=== PATIENT | female | born 1970 | race Caucasian/White ===

== ENCOUNTER → 2016-07-05 | Outpatient (CLI) | payer MEDICARE ==
[~2016-07-05] MED LIST: AMBIEN10 MG PO; ATARAX PO; CALCIUM 600 +1 EA13 PO; CALCIUM 600 +1 EAC3 PO; CELEXA PO; CIPRO PO; CITALOPRAM HBR40 M1 PO; CITALOPRAM HBR40 MG PO; COLESTID PO; COQ-10100 MG PO; DAYPRO600 M1 PO; DEPAKOTE250 MG PO; DIAMOX SEQUELS500 MG PO; DICLOFENAC PO; FIORICET 50-321 EACH PO; FISH OIL 1,2001 EAC2 PO; FISH OIL300 MG PO; FLEXERIL10 M1 PO; FLEXERIL10 MG PO; FLONASE ALLERG9.9 ML; IBUPROFEN800 MG PO; IMITREX PO; IRON45 MG PO; K-DUR20 ME1 PO; KETOPROFEN PO; KLONOPIN PO; KLONOPIN1 M1 PO; KLONOPIN1 MG PO; LAMICTAL150 MG PO; LAMICTAL25 MG PO; LATANOPROST2.5 ML OU; LIPITOR20 MG PO; LORCET PLUS 7.1 EACH PO; MAGNESIUM250 M1 PO; MAGNESIUM500 MG PO; MULTI VITAMIN1 EACH PO; NAMENDA10 MG PO; NEURONTIN PO; NEXIUM40 M1 PO; OTC ALLERGY MED PO; PANTOPRAZOLE SO40 MG PO; PREDNISONE PO; PROPRANOLOL HCL10 MG PO; PROTONIX PO; RESTORIL15 MG PO; SIMVASTATIN20 MG; SUPER MULTIPLE1 EACH PO; TAGAMET PO; TESSALON PERLE100 M1 DOB; TOPAMAX PO; TOPAMAX25 MG PO; TRAZODONE HCL100 MG PO; TREXIMET 85-5001 TAB; VERAPAMIL ER100 MG PO; VICODIN 5/1 TAB 5/50 PO; VIMOVO 500-201 EACH PO; VITAMIN B-121000 MC1 SL; VITAMIN B-250 MG PO; VITAMIN B12-FO1 EACH PO; VITAMIN B2 PO; VITAMIN C500 M5 PO; VITAMIN D-32000 UNI2 PO; VITAMIN D2000 UNIT PO; VITAMIN D50000 UNIT PO; VOLTAREN75 MG PO; ZONEGRAN100 M1 PO
--- NOTE | ~2016-07-05 | MR113 ---
[facility] A Service of [facility] RADIOLOGY TEXT RESULTS PATIENT: ERNESTO CANAS LOCATION: [facility] : 71 UNIT #: [id number] AGE: [address]: HEAVEN LYONS MD (INT MED) SEX: F ORDER DR: [id number] [address] [address] [id number] O MR#: [id number] Acc #: [id number] NAME: ERNESTO CANAS : 1970 SEX: F STUDY DATE/TIME: 07/05/2016 17:12 UNIT: [facility] ROOM: STUDY DESCRIPTION: MR Lumbar Wo Contrast Attending Physician: Heaven Lyons M.D. Ordering Physician: Heaven Lyons M.D. Primary Care Physician: Heaven Lyons M.D. MRI CENTER REPORT This report is preliminary unless electronic signature is present. EXAM MRI of the lumbar spine without contrast dated 07/05/2016 COMPARISON MRI lumbar spine without contrast dated 08/18/2014. HISTORY Increasing neck pain and low back pain since March 2016. FINDINGS Multisequence, multiplanar imaging of the lumbar spine was obtained without contrast. Vertebral body heights and alignment are preserved. Degenerative disc disease is at L4-5. Conus terminates at L1. There is fatty filum terminale extending from the level of L2-3 to L5. Pre- and paravertebral soft tissues do not demonstrate any significant abnormality. L1-2 to L3-4: No significant abnormality. L4-5: Concentric disc bulge with superimposed qxsad-wg-pnve subarticular broad-based disc protrusion with a suspicious small extruded component in the midline measuring 1.3 cm. Mild canal stenosis. No neural foraminal narrowing. L5-S1: Unremarkable. IMPRESSION Disc disease is seen at L4-5 with gokia-bx-suwp subarticular broad-based disc protrusion with a central extruded component. Associated mild canal stenosis is seen without neural foraminal narrowing. [facility] A Service of [facility] RADIOLOGY TEXT RESULTS PATIENT: ERNESTO CANAS LOCATION: [facility] : 71 UNIT #: [id number] AGE: [address]: HEAVEN LYONS MD (INT MED) SEX: F ORDER DR: Dictated by... Rajendra Dao M.D. THIS IS AN ELECTRONICALLY VERIFIED REPORT Rajendra Dao M.D. at 07/08/2016 5:17 PM CPR/mjs TD: 07/08/2016 09:33 JOB #: [id number] MRI CENTER REPORT
--- NOTE | ~2016-07-05 | MR32 ---
[facility] A Service of [facility] RADIOLOGY TEXT RESULTS PATIENT: ERNESTO CANAS LOCATION: [facility] : 71 UNIT #: [id number] AGE: [address]: HEAVEN LYONS MD (INT MED) SEX: F ORDER DR: [id number] [address] [address] [id number] O MR#: [id number] Acc #: [id number] NAME: ERNESTO CANAS : 1970 SEX: F STUDY DATE/TIME: 07/05/2016 16:45 UNIT: [facility] ROOM: STUDY DESCRIPTION: MR Cervical Wo Contrast Attending Physician: Heaven Lyons M.D. Ordering Physician: Heaven Lyons M.D. Primary Care Physician: Heaven Lyons M.D. MRI CENTER REPORT This report is preliminary unless electronic signature is present. EXAM MRI of the cervical spine without contrast dated 07/05/2016. COMPARISON MRI of the cervical spine without contrast dated 08/18/2014. HISTORY Increasing neck pain and low back pain since March 2016. FINDINGS Multisequence multiplanar imaging of the cervical spine was obtained without contrast. Vertebral body heights and alignment are preserved. Degenerative disc disease is at multiple levels, worse at C5-6 when compared to the other levels. Cord demonstrates expected course, caliber and signal. Imaged posterior fossa and craniovertebral junction are within normal limits. There is mild left mastoid tip mucosal thickening. C2-3: Mild disc bulge without canal stenosis or neural foraminal narrowing. C3-4: Concentric disc bulge with superimposed gaydn-ff-ummf central moderate protrusion with a suspicious small extruded central component. Stable. Tiny bilateral subarticular small protrusions are probably present. Stable to minimally worse. There is borderline sized to mild canal, mild left facet hypertrophic change, mild superior left neural foraminal narrowing. Relatively stable. C4-5: Concentric disc bulge with superimposed eyejd-nd-sfoy central protrusion, most prominent in the left central region. There is mild mass effect on the adjacent thecal sac and stenosis without cord compression. Superior left neural foraminal narrowing is seen with relatively patent inferior aspect. Mild bilateral facet changes particularly on the left. Stable. [facility]. [facility] A Service of [facility] RADIOLOGY TEXT RESULTS PATIENT: ERNESTO CANAS LOCATION: [facility] : 71 UNIT #: [id number] AGE: [address]: HEAVEN LYONS MD (INT MED) SEX: F ORDER DR: C5-6: Disc-osteophyte complex concentric disc bulge with small central disc extrusion and tiny bilateral subarticular small protrusions. Probably stable given differences in slice selection. It is better seen on the axial T2-weighted (gradient) sequence. Mild canal stenosis, hati-hu-pmdgugwn bilateral neural foraminal narrowing are noted. Stable. C6-7: Concentric disc bulge with tiny central protrusion. No canal stenosis or neural foraminal narrowing. C7-T1: Mild degenerative disc signal loss but otherwise unremarkable. Stable. IMPRESSION 1. Given the differences in slice selection there is no significant interval change. 2. Also levels, findings are relatively worse at C5-6 followed by C3-4 and C4-5. 3. Cord is unremarkable. 4. No severe neural foraminal narrowing or nerve impingement. 5. Canal stenosis is seen from C3-4 to C5-6 levels. 1. 1. Dictated by... Rajendra Dao M.D. THIS IS AN ELECTRONICALLY VERIFIED REPORT Rajendra Dao M.D. at 07/08/2016 5:25 PM CPR/cmm TD: 07/08/2016 09:37 JOB #: [id number] MRI CENTER REPORT
== END | disposition home or self-care (01) ==
LOC: SMRI 16:30
DX: M54.5 Low back pain (principal); M54.2 Cervicalgia; M51.26 Other intervertebral disc displacement, lumbar region; M48.06 Spinal stenosis, lumbar region; M48.02 Spinal stenosis, cervical region
CPT/HCPCS: 72141; 72148

== ENCOUNTER → 2016-08-22 | Outpatient (CLI) | payer MEDICARE ==
--- NOTE | ~2016-08-22 | XA198 ---
[facility] A Service of [facility] RADIOLOGY TEXT RESULTS PATIENT: ERNESTO CANAS LOCATION: [facility] : 71 UNIT #: [id number] AGE: [address]: DELFINA SINCLAIR APRN SEX: F ORDER DR: [id number] [facility]. [place], [place] [address] [id number] O MR#: [id number] Acc #: [id number] NAME: ERNESTO CANAS. : 1970 SEX: F STUDY DATE/TIME: 08/22/2016 9:23 UNIT: [facility] ROOM: STUDY DESCRIPTION: XA Spinal Puncture Attending Physician: Delfina Sinclair Aprn Ordering Physician: Delfina Sinclair Aprn Primary Care Physician: Dajuan Lyons M.D. MEDICAL IMAGING REPORT This report is preliminary unless electronic signature is present EXAM Fluoroscopically-guided lumbar puncture INDICATIONS Headaches and pseudotumor cerebri. Large-volume lumbar puncture requested with closing pressure requested to be under 18. The fluoro time 0.5 minutes. Reference air kerma 75 mGy. The risks, benefits, and alternatives of the procedure were discussed with the patient and informed consent was obtained. In the procedure room, a time out was performed confirming correct patient and procedure. All elements of maximum sterile-barrier technique utilized according to guidelines appropriate for the procedure. FINDINGS Patient is placed in the prone position on the fluoroscopy table. The overlying skin was prepped and draped usual sterile fashion. 1% lidocaine utilized to anesthetize the skin and underlying subcutaneous tissues. Next under fluoroscopic guidance, a 20-gauge spinal needle was advanced into the CSF space at the L4 level and there is return of clear CSF. The opening pressure was 26 cm of water. Approximately 15 mL of clear CSF was then removed. Closing pressure was 16 cm water. The needle was removed and a sterile dressing was applied. No immediate complications. IMPRESSION Technically successful fluoroscopically-guided lumbar puncture with closing pressure of 16 cm of water. Dictated by... Adryan Pina M.D. [facility] A Service of [facility] RADIOLOGY TEXT RESULTS PATIENT: ERNESTO CANAS LOCATION: [facility] : 71 UNIT #: [id number] AGE: [address]: DELFINA SINCLAIR APRN SEX: F ORDER DR: THIS IS AN ELECTRONICALLY VERIFIED REPORT Adryan Pina M.D. at 08/23/2016 9:32 AM ROBERTO CARLOS/mar TD: 08/22/2016 17:14 JOB #: [id number] MEDICAL IMAGING REPORT Page 1 of 1 COPY
[2016-08-22 08:47] LABS: HEMATOCRIT 39.5 % (35.0-45.0); MEAN CELL VOLUME 85.4 FL (83-96); MEAN CORPUSCULAR HEMOGLOBIN 28.1 PG (28-34); MEAN CORPUSCULAR HGB CONC 32.8 g/dL (30-36); MEAN PLATELET VOLUME 6.9 FL (6.5-11.5); RED BLOOD COUNT 4.63 X10e (3.90-5.30); RED CELL DISTRIBUTION WIDTH 14.3 % (11.0-15.5)
[2016-08-22 09:02] LABS: PARTIAL THROMBOPLASTIN TIME 26.8 SECONDS (23.5-31.3); PROTHROMBIN TIME (PATIENT) 10.4 SECONDS (9.6-11.5)
== END | disposition home or self-care (01) ==
LOC: CIVR 08:21
PROVIDERS: Nurse Practitioner Family
PROC: 009U3ZZ Drainage of Spinal Canal, Percutaneous Approach (ICD-10-PCS; principal; 2016-08-22)
DX: G93.2 Benign intracranial hypertension (principal); G43.709 Chronic migraine without aura, not intractable, without status migrainosus; G44.229 Chronic tension-type headache, not intractable; E78.5 Hyperlipidemia, unspecified; M79.7 Fibromyalgia; F41.1 Generalized anxiety disorder; E55.9 Vitamin D deficiency, unspecified; D64.9 Anemia, unspecified; F17.200 Nicotine dependence, unspecified, uncomplicated; E66.9 Obesity, unspecified; Z68.36 Body mass index [BMI] 36.0-36.9, adult; H53.9 Unspecified visual disturbance; M54.81 Occipital neuralgia; M62.838 Other muscle spasm; R41.3 Other amnesia; M54.5 Low back pain; M54.2 Cervicalgia; Z79.899 Other long term (current) drug therapy; Z87.09 Personal history of other diseases of the respiratory system; Z88.2 Allergy status to sulfonamides
CPT/HCPCS: 36415; 77003; 85027; 85610; 85730

== ENCOUNTER 2016-08-27 16:14 | Emergency (ER) | payer MEDICARE ==
--- NOTE | ~2016-08-27 | US140 ---
[facility] A Service of [facility] RADIOLOGY TEXT RESULTS PATIENT: ERNESTO CANAS LOCATION: [facility] : 72 UNIT #: [id number] AGE: [address]: Cathy Bell MD SEX: F ORDER DR: [id number] [facility] [address] [place], [place] [address] [id number] E MR#: [id number] Acc #: [id number] NAME: ERNESTO CANAS. : 1970 SEX: F STUDY DATE/TIME: 08/27/2016 18:27 UNIT: [facility] ROOM: STUDY DESCRIPTION: UE Veins Unilat or Ltd Stdy Attending Physician: Cathy Bell M.D. Ordering Physician: Katty Jaramillo M.D. Primary Care Physician: Dajuan Lyons M.D. MEDICAL IMAGING REPORT This report is preliminary unless electronic signature is present EXAM Right upper extremity venous duplex, 08/27/2016 HISTORY Right upper extremity pain and swelling for 2 days with numbness, evaluate for deep vein thrombosis. FINDINGS Canales-scale images of the right upper extremity were obtained as well as Doppler waveform spectral analysis and color flow Doppler imaging. There is normal blood flow and compressibility in the right internal jugular vein as well as the right subclavian, axillary, brachial, cephalic, and basilic veins. There is no evidence of deep vein thrombosis in the right upper extremity. IMPRESSION Negative right upper extremity venous duplex with no evidence of deep vein thrombus. Dictated by... Willy Cleary M.D. THIS IS AN ELECTRONICALLY VERIFIED REPORT Willy Cleary M.D. at 08/28/2016 2:13 PM KRT/carmen TD: 08/27/2016 21:38 JOB #: [id number] MEDICAL IMAGING REPORT Page 1 of 1 COPY
--- NOTE | ~2016-08-27 | CT16 ---
[facility] A Service of [facility] RADIOLOGY TEXT RESULTS PATIENT: ERNESTO CANAS LOCATION: [facility] : 71 UNIT #: [id number] AGE: [address]: Cathy Bell MD SEX: F ORDER DR: [id number] [facility] [address] [place], [place] [address] [id number] E MR#: [id number] Acc #: [id number] NAME: ERNESTO CANAS : 1970 SEX: F STUDY DATE/TIME: 08/27/2016 19:27 UNIT: [facility] ROOM: STUDY DESCRIPTION: CT Angio Chest for PE Attending Physician: Cathy Bell M.D. Ordering Physician: Katty Jaramillo M.D. Primary Care Physician: Dajuan Lyons M.D. MEDICAL IMAGING REPORT This report is preliminary unless electronic signature is present EXAM CT angio chest with contrast, 08/27/16 HISTORY Right arm numbness since last night with chest pain and tingling, evaluate for pulmonary embolus. TECHNIQUE This CT exam was performed with one or more of the following radiation dose reduction techniques: automatic exposure control, adjustment of mA and/or kV according to patient size, and iterative reconstruction. Spiral CT was performed through the chest following intravenous contrast administration using pulmonary embolus protocol. 3-D reconstructions in the chest were then performed following intravenous contrast administration. FINDINGS There is no CT evidence for pulmonary embolus. The heart is normal in size. There is no significant thoracic adenopathy. There are no pleural effusions. The lungs are clear. IMPRESSION No CT evidence for pulmonary embolus. Dictated by... Willy Cleary M.D. THIS IS AN ELECTRONICALLY VERIFIED REPORT Willy Cleary M.D. at 08/28/2016 2:14 PM GEORGE/sandra [facility] A Service of [facility] RADIOLOGY TEXT RESULTS PATIENT: ERNESTO CANAS LOCATION: [facility] : 71 UNIT #: [id number] AGE: [address]: Cathy Bell MD SEX: F ORDER DR: TD: 08/27/2016 22:31 JOB #: [id number] MEDICAL IMAGING REPORT Page 1 of 1 COPY
--- NOTE | ~2016-08-27 | CR72 ---
[facility] A Service [facility] RADIOLOGY TEXT RESULTS PATIENT: ERNESTO CANAS LOCATION: [facility] : 71 UNIT #: [id number] AGE: [address]: Cathy Bell MD SEX: F ORDER DR: [id number] [facility] [address] [place], [place] [address] [id number] E MR#: [id number] Acc #: [id number] NAME: ERNESTO CANAS. : 1970 SEX: F STUDY DATE/TIME: 08/27/2016 16:55 UNIT: [facility] ROOM: STUDY DESCRIPTION: CR Chest Single View Portable Attending Physician: Cathy Bell M.D. Ordering Physician: Katty Jaramillo M.D. Primary Care Physician: Dajuan Lyons M.D. MEDICAL IMAGING REPORT This report is preliminary unless electronic signature is present EXAM Frontal chest 08/27/2016 INDICATIONS 46-year-old female with left arm numbness, shortness of air with activity. Symptoms began yesterday. No known injury. Tobacco abuse. TECHNIQUE Frontal chest. COMPARISON STUDIES No comparisons. FINDINGS Cardiac silhouette unremarkable. Vascularity is normal. Lung volumes are low but the lungs are otherwise clear. No pneumothorax. IMPRESSION 1. Low-volume image, otherwise negative frontal chest. Dictated by... Cristian Schulte M.D. THIS IS AN ELECTRONICALLY VERIFIED REPORT Cristian Schulte M.D. at 08/29/2016 5:40 PM ALBA/mar TD: 08/27/2016 19:37 JOB #: [id number] [facility] A Service [facility] RADIOLOGY TEXT RESULTS PATIENT: ERNESTO CANAS LOCATION: [facility] : 71 UNIT #: [id number] AGE: [address]: Cathy Bell MD SEX: F ORDER DR: MEDICAL IMAGING REPORT Page 1 of 1 COPY
[~2016-08-27 16:14] MED LIST changes: -CALCIUM 600 +1 EA13 PO; -CITALOPRAM HBR40 M1 PO; -FISH OIL 1,2001 EAC2 PO; -FLONASE ALLERG9.9 ML; -IRON45 MG PO; -KLONOPIN1 M1 PO; -LATANOPROST2.5 ML OU; -LORCET PLUS 7.1 EACH PO; -MAGNESIUM500 MG PO; -NEXIUM40 M1 PO; -SUPER MULTIPLE1 EACH PO; -TESSALON PERLE100 M1 DOB; -VITAMIN B-121000 MC1 SL; -VITAMIN B-250 MG PO; -VITAMIN D-32000 UNI2 PO
[2016-08-27 16:23] LABS: BASOPHIL# 0.1 X10e3 (0-0.3); BASOPHIL% 0.9 % (0-2.5); EOSINOPHIL# 0.2 X10e3 (0-0.7); EOSINOPHIL% 2.5 % (0.0-7.0); HEMATOCRIT 36.9 % (35.0-45.0); HEMOGLOBIN 12.3 gm/dL (12.0-16.0); LYMPHOCYTE# 2.4 X10e3 (1.0-3.5); LYMPHOCYTE% 35.5 % (17.0-45.0); MEAN CELL VOLUME 85.1 FL (83-96); MEAN CORPUSCULAR HEMOGLOBIN 28.4 PG (28-34); MEAN CORPUSCULAR HGB CONC 33.4 g/dL (30-36); MEAN PLATELET VOLUME 6.9 FL (6.5-11.5); MONOCYTE# 0.5 X10e3 (0-1.0); MONOCYTE% 7.7 % (3.0-12.0); NEUTROPHIL# 3.7 X10e3 (1.5-7.1); NEUTROPHIL% 53.4 % (40-75); PLATELET COUNT 329 X10e3 (140-420); RED BLOOD COUNT 4.33 X10e (3.90-5.30); RED CELL DISTRIBUTION WIDTH 14.4 % (11.0-15.5); WHITE BLOOD COUNT 6.9 X10e3 (4.0-10.5)
[2016-08-27 16:24] LABS: DIFF IND NO
[2016-08-27 16:50] LABS: ALKALINE PHOSPHATASE 94 U/L (32-92); ALT (SGPT) 32 U/L (10-40); AST (SGOT) 37 U/L (10-42); BILIRUBIN, DIRECT <0.1 mg/dL (0.0-0.2); BILIRUBIN,INDIRECT 0.3 mg/dL (0.0-0.9); BILIRUBIN,TOTAL 0.4 mg/dL (0.2-2.0); BLOOD UREA NITROGEN 7 mg/dL (9-23); CALCIUM SERUM 8.7 mg/dL (8.4-10.2); CARBON DIOXIDE 25 mmol/L (22-31); CHLORIDE 99 mmol/L (100-111); CREATININE SERUM 0.4 mg/dL (0.6-1.4); GLOM FILT RATE Estimated 125.8 mL/min (>60); GLUCOSE FASTING 95 mg/dL (70-110); POTASSIUM 3.3 mmol/L (3.5-5.1); PROTEIN TOTAL SERUM 7.2 g/dL (6.0-8.3); SODIUM 132 mmol/L (135-145)
[2016-12-19] MEDS ORDERED: LATANOPROST2.5 ML OU (09:05)
[2016-12-19] MEDS ORDERED: NEXIUM40 M1 PO (09:06)
[2016-12-19] MEDS ORDERED: FLONASE ALLERG9.9 ML (09:06)
[2016-12-19] MEDS ORDERED: TESSALON PERLE100 M1 DOB (09:06)
[2016-12-19] MEDS ORDERED: CITALOPRAM HBR40 M1 PO (09:07)
[2016-12-19] MEDS ORDERED: KLONOPIN1 M1 PO (09:07)
[2016-12-19] MEDS ORDERED: FLEXERIL10 MG PO (09:07)
[2016-12-19] MEDS ORDERED: LAMICTAL150 MG PO (09:07)
[2016-12-19] MEDS ORDERED: LORCET PLUS 7.1 EACH PO (09:08)
[2016-12-19] MEDS ORDERED: SUPER MULTIPLE1 EACH PO (09:09)
[2016-12-19] MEDS ORDERED: TOPAMAX PO (09:09)
[2016-12-19] MEDS ORDERED: COQ-10100 MG PO (09:10)
[2016-12-19] MEDS ORDERED: VITAMIN B-250 MG PO (09:10)
[2016-12-19] MEDS ORDERED: MAGNESIUM500 MG PO (09:10)
[2016-12-19] MEDS ORDERED: IRON45 MG PO (09:11)
[2016-12-19] MEDS ORDERED: VITAMIN D-32000 UNI2 PO (09:11)
[2016-12-19] MEDS ORDERED: FISH OIL 1,2001 EAC2 PO (09:12)
[2016-12-19] MEDS ORDERED: VITAMIN B-121000 MC1 SL (09:12)
[2016-12-19] MEDS ORDERED: CALCIUM 600 +1 EA13 PO (09:13)
== END 2016-08-27 21:16 | disposition home or self-care (01) ==
LOC: CED 16:14
PROVIDERS: Emergency Medicine
DX: I80.8 Phlebitis and thrombophlebitis of other sites (principal); F17.200 Nicotine dependence, unspecified, uncomplicated; F41.9 Anxiety disorder, unspecified
CPT/HCPCS: 71010; 71275; 80048; 80076; 84703; 85025; 93971; 99284; Q9967

== ENCOUNTER → 2016-12-19 | Outpatient (CLI) | payer MEDICARE ==
[~2016-12-19] MED LIST changes: +CALCIUM 600 +1 EA13 PO; +CITALOPRAM HBR40 M1 PO; +FISH OIL 1,2001 EAC2 PO; +FLONASE ALLERG9.9 ML; +IRON45 MG PO; +KLONOPIN1 M1 PO; +LATANOPROST2.5 ML OU; +LORCET PLUS 7.1 EACH PO; +MAGNESIUM500 MG PO; +NEXIUM40 M1 PO; +SUPER MULTIPLE1 EACH PO; +TESSALON PERLE100 M1 DOB; +VITAMIN B-121000 MC1 SL; +VITAMIN B-250 MG PO; +VITAMIN D-32000 UNI2 PO
--- NOTE | ~2016-12-19 | XA198 ---
[facility] A Service of [facility] RADIOLOGY TEXT RESULTS PATIENT: ERNESTO CANAS LOCATION: [facility] : 71 UNIT #: [id number] AGE: [address]: Wally Nunes II, MD SEX: F ORDER DR: [id number] [id number] [facility]. [place], [place] [address] [id number] O MR#: [id number] Acc #: [id number] NAME: ERNESTO CANAS : 1970 SEX: F STUDY DATE/TIME: 12/19/2016 10:10 UNIT: [facility] ROOM: STUDY DESCRIPTION: XA Spinal Puncture Attending Physician: Wally Nunes II., M.D. Ordering Physician: Wally Nunes II., M.D. Primary Care Physician: Dajuan Lyons M.D. MEDICAL IMAGING REPORT This report is preliminary unless electronic signature is present EXAM Ultrasound-guided lumbar puncture, 12/19/2016. HISTORY Headaches and pseudotumor. Therapeutic puncture requested with opening and closing pressures and fluid removal to ensure a closing pressure less than 20 cmH2O. PROCEDURE Informed consent was obtained, and standard sterile technique was utilized. Using fluoroscopic guidance, lumbar puncture was performed after local anesthesia at the L4 level using a 20-gauge spinal needle. 0.4 minutes of fluoroscopy was utilized, along with a single spot image. FINDINGS Opening pressure was 23 cmH2O and after removal of about 15 mL of CSF, closing pressure was about 10 to 11 cmH2O. There were no complications, and the patient tolerated the procedure well. IMPRESSION Successful therapeutic fluoroscopically guided lumbar puncture with opening pressure of 23 cmH2O and closing pressure of 10-11 cmH2O following removal of about 15 mL of clear, colorless CSF. Dictated by... Evin Daniels M.D. THIS IS AN ELECTRONICALLY VERIFIED REPORT Evin Daniels M.D. at 12/23/2016 9:02 AM INGA/kesha [facility] A Service of [facility] RADIOLOGY TEXT RESULTS PATIENT: ERNESTO CANAS LOCATION: [facility] #: [id number] : 72 UNIT #: [id number] AGE: [address]: Wally Nunes II, MD SEX: F ORDER DR: TD: 12/20/2016 16:56 JOB #: [id number] MEDICAL IMAGING REPORT Page 1 of 1 COPY
[2016-12-19 08:53] LABS: HEMATOCRIT 37.2 % (35.0-45.0); HEMOGLOBIN 12.6 gm/dL (12.0-16.0); MEAN CELL VOLUME 86.5 FL (83-96); MEAN CORPUSCULAR HEMOGLOBIN 29.4 PG (28-34); MEAN PLATELET VOLUME 6.6 FL (6.5-11.5); RED BLOOD COUNT 4.3 X10e (3.90-5.30); RED CELL DISTRIBUTION WIDTH 13.9 % (11.0-15.5)
[2016-12-19 09:12] LABS: PARTIAL THROMBOPLASTIN TIME 26.7 SECONDS (23.5-31.3); PROTHROMBIN TIME (PATIENT) 10.4 SECONDS (10.0-11.7)
== END | disposition home or self-care (01) ==
LOC: CIVR 08:26
PROVIDERS: Psychiatry & Neurology Neurology
DX: G93.2 Benign intracranial hypertension (principal)
CPT/HCPCS: 36415; 77003; 85027; 85610; 85730